=== PATIENT | female | born 1930 | race Caucasian/White ===

== ENCOUNTER 2018-08-22 09:43 | Inpatient (IN) ==
[2018-08-22] MEDS ORDERED: MORPHINE 4 MG/1 ML VIAL IV STA (09:51)
[2018-08-22] MEDS ORDERED: SODIUM CHLORIDE 0.9% 500 ML IV STA (09:51)
[2018-08-22] MEDS ORDERED: ONDANSETRON 4 MG/2 ML VIAL IV STA (09:51)
[2018-08-22 10:06] LABS: Basophils % 0.3 % (0.0-0.8); Eosinophils % 0.1 % (0.00-10.9); Hemoglobin 13.6 GM/DL (12.0-16.0); Immature Granulocytes % 0.6 %; Immature Granulocytes Absolute 0.09 #; Lymphocytes # 0.5 10*3/uL (1.4-4.0); Lymphocytes % 3.4 % (21.3-54.2); Mean Corpuscular HGB Conc 33.2 GM/DL (32-36); Mean Corpuscular Hemoglobin 34 PG (27-34); Mean Platelet Volume 9.6 FL (9.6-12.0); Monocytes # 0.8 10*3/uL (0.11-0.8); Monocytes % 5.2 % (1.7-12.7); Neutrophils # 14.2 10*3/uL (1.4-7.4); Neutrophils % 90.4 % (38.7-73.9); Platelet Count 220 T/CUMM (130-400); Red Blood Count 3.98 MC/CUMM (3.8-5.5); Red Cell Distribution Width 12.4 % (9.3-17.3); White Blood Count 15.7 T/CUMM (4-12)
[2018-08-22 10:50] LABS: Lymphocytes 6 % (20-55); Segmented Neutrophils 91 % (50-85); Total Cells Counted 100
[2018-08-22 10:51] LABS: Macrocytosis Slight; Platelet Estimate Normal
[2018-08-22 11:05] LABS: Albumin 3.2 G/DL (3.4-5.0); Bilirubin,Total 0.7 MG/DL (0.2-1.0); CKMB % 1.5 %; Calcium 7.9 MG/DL (8.5-10.1); Potassium 4.5 MMOL/L (3.5-5.1); Total Protein 6.5 G/DL (6.4-8.3); Troponin I 0.019 NG/ML (0.00-0.045)
[2018-08-22 11:49] LABS: Apearance,Urine CLEAR (Clear); Bacteria,Urine Occasional /HPF (Few); Bilirubin,Urine Negative (Negative); Blood, Urine Moderate mg/dL (Negative); Glucose,Urine (UA) Negative (Negative); Ketones,Urine Negative (Negative); Nitrite,Urine Positive (Negative); Protein,Urine Negative; RBC,Urine <1 /HPF (0-4); Urine Color Yellow (Yellow); Urine Specific Gravity 1.019 (1.001-1.035); Urine Urobilinogen < 2.0 EU/DL (0.2-1.0); WBC,Urine <1 /HPF (0-6)
[2018-08-22] MEDS ORDERED: cefTRIAXone 1,000 MG in SODIUM CHLORIDE 0.9% 100 ML IV STA (11:54)
[2018-08-22] MEDS ORDERED: DOCUSATE SODIUM 100 MG CAPSULE PO PRN (12:00)
[2018-08-22] MEDS ORDERED: ACETAMINOPHEN 325 MG TABLET PO PRN (12:00)
[2018-08-22] MEDS ORDERED: ENOXAPARIN 40 MG/0.4 ML SYRINGE SUBCUT SCH (12:00)
[2018-08-22] MEDS ORDERED: ONDANSETRON 4 MG/2 ML VIAL IV PRN (12:00)
[2018-08-22] MEDS ORDERED: MORPHINE 4 MG/1 ML VIAL IV PRN ×3 (12:00→13:10)
[2018-08-22] MEDS: SODIUM CHLORIDE 0.45% 1,000 ML IV SCH (16:05)
[2018-08-23] MEDS: SODIUM CHLORIDE 0.45% 1,000 ML IV SCH ×3 (00:39→13:00)
[2018-08-23 05:29] LABS: Basophils # 0.1 10*3/uL (0.0-0.2); Basophils % 0.5 % (0.0-0.8); Eosinophils # 0.2 10*3/uL (0.0-0.87); Eosinophils % 1.7 % (0.00-10.9); Hematocrit 38.9 VOL% (35.7-47.0); Hemoglobin 12.3 GM/DL (12.0-16.0); Immature Granulocytes % 0.7 %; Immature Granulocytes Absolute 0.08 #; Lymphocytes # 0.9 10*3/uL (1.4-4.0); Lymphocytes % 7.6 % (21.3-54.2); Mean Corpuscular HGB Conc 31.6 GM/DL (32-36); Mean Corpuscular Hemoglobin 34 PG (27-34); Mean Platelet Volume 9.6 FL (9.6-12.0); Monocytes # 0.5 10*3/uL (0.11-0.8); Monocytes % 4.6 % (1.7-12.7); Neutrophils % 84.9 % (38.7-73.9); Platelet Count 175 T/CUMM (130-400); Red Blood Count 3.67 MC/CUMM (3.8-5.5); Red Cell Distribution Width 12.7 % (9.3-17.3); White Blood Count 11.8 T/CUMM (4-12)
[2018-08-23 05:56] LABS: Calcium 8.2 MG/DL (8.5-10.1); Osmolality,Calculated 276.7 MOS/KG (273-304); Potassium 3.9 MMOL/L (3.5-5.1)
[2018-08-23] MEDS ORDERED: EPINEPHrine 1 MG/ML VIAL ONE (07:42)
[2018-08-23] MEDS ORDERED: ROPIVACAINE 0.5% 30 ML VIAL ONE (07:42)
[2018-08-23] MEDS ORDERED: BUPIVACAINE SPINAL 0.75% 2 ML AMP SPINAL ONE (08:41)
[2018-08-23] MEDS ORDERED: ceFAZolin 1,000 MG in SYRINGE 1 EACH IV ONE (09:00)
[2018-08-23] MEDS ORDERED: BISACODYL 10 MG SUPP RECTAL PRN (09:29)
[2018-08-23] MEDS ORDERED: diphenhydrAMINE CAP 25 MG CAPSULE PO PRN (09:29)
[2018-08-23] MEDS ORDERED: LACTULOSE 20 GM/30 ML UDCUP PO PRN (09:29)
[2018-08-23] MEDS ORDERED: MAGNESIUM HYDROXIDE SUSP 30 ML UDCUP PO PRN (09:29)
[2018-08-23] MEDS ORDERED: TEMAZEPAM 7.5 MG CAPSULE PO PRN (09:29)
[2018-08-23] MEDS ORDERED: PROMETHAZINE 25 MG/1 ML VIAL IM PRN (09:29)
[2018-08-23] MEDS ORDERED: MORPHINE 4 MG/1 ML VIAL IV PRN ×2 (09:35→09:39)
[2018-08-23] MEDS ORDERED: ceFAZolin 1,000 MG VIAL ONE (10:00)
[2018-08-23] MEDS ORDERED: MIDAZOLAM 2 MG/2 ML VIAL ONE (13:37)
[2018-08-23] MEDS ORDERED: PROPOFOL 200 MG/20 ML VIAL IV ONE (13:37)
[2018-08-23] MEDS ORDERED: fentaNYL 100 MCG/2 ML VIAL ONE (13:38)
[2018-08-23] MEDS ORDERED: ONDANSETRON 4 MG/2 ML VIAL ONE (13:38)
[2018-08-23] MEDS ORDERED: KETAMINE 500 MG/10 ML VIAL ONE (13:38)
[2018-08-23] MEDS ORDERED: PHENYLEPHRINE 10 MG/1 ML VIAL IV ONE (13:38)
[2018-08-23] MEDS: LACTATED RINGERS 1,000 ML IV SCH (16:01)
[2018-08-23] MEDS: cefTRIAXone 1,000 MG in SYRINGE 1 EACH IV SCH (16:11)
[2018-08-23] MEDS: PANTOPRAZOLE 40 MG TABLET PO SCH (16:12)
[2018-08-23] MEDS: ceFAZolin 1,000 MG in SYRINGE 1 EACH IV SCH (18:20)
[2018-08-23] MEDS: FONDAPARINUX 2.5 MG/0.5 ML SYRINGE SUBCUT SCH (21:09)
[2018-08-24] MEDS: SODIUM CHLORIDE 0.45% 1,000 ML IV SCH ×3 (00:46→08:49)
[2018-08-24] MEDS: ceFAZolin 1,000 MG in SYRINGE 1 EACH IV SCH (03:16)
[2018-08-24] MEDS ORDERED: ceFAZolin 1,000 MG in SYRINGE 1 EACH IV SCH (03:30)
[2018-08-24 05:34] LABS: Basophils # 0.1 10*3/uL (0.0-0.2); Basophils % 0.5 % (0.0-0.8); Eosinophils # 0.3 10*3/uL (0.0-0.87); Eosinophils % 2.9 % (0.00-10.9); Hematocrit 35.1 VOL% (35.7-47.0); Hemoglobin 11.6 GM/DL (12.0-16.0); Immature Granulocytes % 0.7 %; Immature Granulocytes Absolute 0.07 #; Lymphocytes # 0.8 10*3/uL (1.4-4.0); Lymphocytes % 7.7 % (21.3-54.2); Mean Corpuscular Hemoglobin 34 PG (27-34); Mean Corpuscular Volume 103.8 FL (87-102); Mean Platelet Volume 10.1 FL (9.6-12.0); Monocytes # 0.6 10*3/uL (0.11-0.8); Monocytes % 5.7 % (1.7-12.7); Neutrophils # 8.8 10*3/uL (1.4-7.4); Neutrophils % 82.5 % (38.7-73.9); Platelet Count 135 T/CUMM (130-400); Red Blood Count 3.38 MC/CUMM (3.8-5.5); Red Cell Distribution Width 12.5 % (9.3-17.3); White Blood Count 10.7 T/CUMM (4-12)
[2018-08-24 05:51] LABS: Calcium 7.9 MG/DL (8.5-10.1); Osmolality,Calculated 274.8 MOS/KG (273-304); Potassium 3.8 MMOL/L (3.5-5.1)
[2018-08-24] MEDS: LACTATED RINGERS 1,000 ML IV SCH ×2 (06:11→16:02)
[2018-08-24] MEDS: PANTOPRAZOLE 40 MG TABLET PO SCH (08:49)
[2018-08-24] MEDS: cefTRIAXone 1,000 MG in SYRINGE 1 EACH IV SCH (08:49)
[2018-08-24] MEDS: FOLIC ACID 1 MG TABLET PO SCH ×2 (10:26→20:36)
[2018-08-24] MEDS: cephALEXin 250 MG CAPSULE PO SCH ×2 (17:54→20:36)
[2018-08-24] MEDS: FONDAPARINUX 2.5 MG/0.5 ML SYRINGE SUBCUT SCH (20:36)
[2018-08-25 05:29] LABS: Basophils % 0.2 % (0.0-0.8); Eosinophils # 0.2 10*3/uL (0.0-0.87); Eosinophils % 1.9 % (0.00-10.9); Hematocrit 32.3 VOL% (35.7-47.0); Hemoglobin 10.6 GM/DL (12.0-16.0); Immature Granulocytes % 0.7 %; Immature Granulocytes Absolute 0.09 #; Lymphocytes % 7.8 % (21.3-54.2); Mean Corpuscular HGB Conc 32.8 GM/DL (32-36); Mean Corpuscular Hemoglobin 34 PG (27-34); Mean Corpuscular Volume 102.5 FL (87-102); Mean Platelet Volume 10.4 FL (9.6-12.0); Monocytes # 0.9 10*3/uL (0.11-0.8); Monocytes % 6.9 % (1.7-12.7); Neutrophils # 10.1 10*3/uL (1.4-7.4); Neutrophils % 82.5 % (38.7-73.9); Platelet Count 131 T/CUMM (130-400); Red Blood Count 3.15 MC/CUMM (3.8-5.5); Red Cell Distribution Width 12.1 % (9.3-17.3); White Blood Count 12.2 T/CUMM (4-12)
[2018-08-25] MEDS: FOLIC ACID 1 MG TABLET PO SCH ×2 (09:30→20:19)
[2018-08-25] MEDS: PANTOPRAZOLE 40 MG TABLET PO SCH (09:30)
[2018-08-25] MEDS: cephALEXin 250 MG CAPSULE PO SCH ×4 (09:30→20:19)
[2018-08-25] MEDS: LACTATED RINGERS 1,000 ML IV SCH ×2 (12:35→12:36)
[2018-08-25] MEDS: FONDAPARINUX 2.5 MG/0.5 ML SYRINGE SUBCUT SCH (20:19)
[2018-08-26 06:00] LABS: Basophils % 0.3 % (0.0-0.8); Eosinophils # 0.2 10*3/uL (0.0-0.87); Eosinophils % 1.5 % (0.00-10.9); Hematocrit 32.2 VOL% (35.7-47.0); Hemoglobin 10.7 GM/DL (12.0-16.0); Immature Granulocytes % 0.7 %; Immature Granulocytes Absolute 0.09 #; Lymphocytes % 8.5 % (21.3-54.2); Mean Corpuscular HGB Conc 33.2 GM/DL (32-36); Mean Corpuscular Hemoglobin 33 PG (27-34); Monocytes # 1.2 10*3/uL (0.11-0.8); Monocytes % 9.5 % (1.7-12.7); Neutrophils # 9.7 10*3/uL (1.4-7.4); Neutrophils % 79.5 % (38.7-73.9); Platelet Count 195 T/CUMM (130-400); Red Blood Count 3.22 MC/CUMM (3.8-5.5); White Blood Count 12.3 T/CUMM (4-12)
[2018-08-26 06:39] LABS: Calcium 8.6 MG/DL (8.5-10.1); Osmolality,Calculated 273.1 MOS/KG (273-304); Potassium 3.5 MMOL/L (3.5-5.1)
[2018-08-26] MEDS: LACTATED RINGERS 1,000 ML IV SCH ×2 (08:46→10:23)
[2018-08-26] MEDS: PANTOPRAZOLE 40 MG TABLET PO SCH (10:23)
[2018-08-26] MEDS: FOLIC ACID 1 MG TABLET PO SCH (10:23)
[2018-08-26] MEDS: cephALEXin 250 MG CAPSULE PO SCH (10:23)
[2018-08-26 16:12] VITALS: BP 103/73
== END 2018-08-26 12:15 | DRG 470 ==
LOC: EDBD → EDUNIT# → N.ED 09:43 → N.EDINP 12:00 → SUATTDRO 12:00 → N.3E 13:10
PROVIDERS: ADMIT Internal Medicine; ATTEND Family Medicine

== ENCOUNTER 2018-08-26 13:42 | Inpatient (IN) ==
[2018-08-26] MEDS ORDERED: PANTOPRAZOLE 40 MG VIAL IV STA (14:05)
[2018-08-26] MEDS ORDERED: ONDANSETRON 4 MG/2 ML VIAL IV STA (14:05)
[2018-08-26] MEDS ORDERED: DILTIAZEM 50 MG/10 ML VIAL IV STA (14:05)
[2018-08-26] MEDS ORDERED: SODIUM CHLORIDE 0.9% 1,000 ML IV STA (14:05)
[2018-08-26] MEDS ORDERED: DILTIAZEM 25 MG/5 ML VIAL IV ONE (14:37)
[2018-08-26] MEDS ORDERED: DOPamine 800 MG/250 ML PREMIX IV ONE (14:39)
[2018-08-26] MEDS ORDERED: LEVOFLOXACIN INJ 750 MG in PREMIX 1 EACH IV STA (14:42)
[2018-08-26 14:44] LABS: Basophils # 0.1 10*3/uL (0.0-0.2); Basophils % 0.4 % (0.0-0.8); Eosinophils # 0.2 10*3/uL (0.0-0.87); Eosinophils % 1.3 % (0.00-10.9); Hematocrit 30.4 VOL% (35.7-47.0); Hemoglobin 10.1 GM/DL (12.0-16.0); Immature Granulocytes % 0.9 %; Immature Granulocytes Absolute 0.12 #; Lymphocytes # 0.9 10*3/uL (1.4-4.0); Lymphocytes % 6.8 % (21.3-54.2); Mean Corpuscular HGB Conc 33.2 GM/DL (32-36); Mean Corpuscular Hemoglobin 34 PG (27-34); Mean Corpuscular Volume 103.1 FL (87-102); Mean Platelet Volume 10.5 FL (9.6-12.0); Monocytes % 7.9 % (1.7-12.7); NRBC # 0.02 10*3/uL; Neutrophils # 10.7 10*3/uL (1.4-7.4); Neutrophils % 82.7 % (38.7-73.9); Platelet Count 194 T/CUMM (130-400); Red Blood Count 2.95 MC/CUMM (3.8-5.5); Red Cell Distribution Width 12.2 % (9.3-17.3)
[2018-08-26] MEDS ORDERED: DIGOXIN 0.5 MG/2 ML AMP IV STA (14:49)
[2018-08-26] MEDS ORDERED: DOPamine 800 MG/250 ML PREMIX IV PRN (15:07)
[2018-08-26] MEDS ORDERED: ADENOSINE 6 MG/2 ML VIAL ONE (15:11)
[2018-08-26 15:18] LABS: Alanine Aminotransferase 39 U/L (13-56); Albumin 2.3 G/DL (3.4-5.0); Alkaline Phosphatase 65 U/L (45-117); Amylase 40 U/L (25-115); Aspartate Amino Transferase 75 U/L (0-37); Blood Urea Nitrogen 19 MG/DL (7-18); Calcium 7.4 MG/DL (8.5-10.1); Glucose 232 MG/DL (74-106); Osmolality,Calculated 278.1 MOS/KG (273-304); Potassium 3.1 MMOL/L (3.5-5.1); Sodium 135 MMOL/L (136-145); Total Protein 5.8 G/DL (6.4-8.3)
[2018-08-26] MEDS ORDERED: ADENOSINE 6 MG/2 ML VIAL IV STA (15:20)
[2018-08-26 15:23] LABS: Troponin I 0.053 NG/ML (0.00-0.045)
[2018-08-26 15:34] LABS: Apearance,Urine CLOUDY (Clear); Bilirubin,Urine Negative (Negative); Blood, Urine Small mg/dL (Negative); Glucose,Urine (UA) 50 mg/dL (Negative); Hyaline Casts,Urine 27 /LPF (0-3); Ketones,Urine Negative (Negative); Mucus,Urine Occasional /LPF (Occasional); Nitrite,Urine Negative (Negative); Protein,Urine 100 MG/DL; RBC,Urine 11 /HPF (0-4); Urine Color Amber (Yellow); Urine Specific Gravity 1.016 (1.001-1.035); Urine Urobilinogen < 2.0 EU/DL (0.2-1.0); WBC,Urine 11 /HPF (0-6)
[2018-08-26 15:49] LABS: INR 1.1; Partial Thromboplastin Time 26.5 SECS (0-40)
[2018-08-26] MEDS ORDERED: ALBUTEROL 2.5 MG/3 ML NEB RESP TX PRN (16:48)
[2018-08-26] MEDS ORDERED: ACETAMINOPHEN 325 MG TABLET PO PRN (16:48)
[2018-08-26] MEDS ORDERED: ONDANSETRON 4 MG/2 ML VIAL IV PRN (16:48)
[2018-08-26] MEDS ORDERED: GLUCAGON 1 MG VIAL IM PRN (16:54)
[2018-08-26] MEDS ORDERED: DEXTROSE 50% 25 GM/50 ML VIAL IV PRN (16:54)
[2018-08-26] MEDS ORDERED: POTASSIUM CHLORIDE 20 MEQ TABLET PO ONE (17:28)
[2018-08-26] MEDS: FUROSEMIDE 40 MG/4 ML VIAL IV SCH (18:54)
[2018-08-26] MEDS: METOPROLOL TARTRATE 25 MG TABLET PO SCH ×2 (18:54→21:07)
[2018-08-26 20:05] LABS: CKMB % 1.4 %
[2018-08-26 20:14] LABS: Lactic Acid 3.3 MMOL/L (0.4-2.0)
[2018-08-26] MEDS: FOLIC ACID 1 MG TABLET PO SCH (21:06)
[2018-08-26] MEDS: ENOXAPARIN 40 MG/0.4 ML SYRINGE SUBCUT SCH (21:06)
[2018-08-26] MEDS: INSULIN LISPRO 100 UNIT/ML SUBCUT SCH (21:06)
[2018-08-26] MEDS: CIPROFLOXACIN 500 MG TABLET PO SCH (21:06)
[2018-08-26] MEDS: FAMOTIDINE 20 MG TABLET PO SCH (21:06)
[2018-08-26 22:17] LABS: CKMB % 1.6 %
[2018-08-26 22:21] LABS: Troponin I 0.355 NG/ML (0.00-0.045)
[2018-08-27 04:36] LABS: Troponin I 0.293 NG/ML (0.00-0.045)
[2018-08-27 07:15] LABS: Bilirubin,Total 1.2 MG/DL (0.2-1.0); Calcium 7.6 MG/DL (8.5-10.1); Osmolality,Calculated 277.7 MOS/KG (273-304); Potassium 3.7 MMOL/L (3.5-5.1); Total Protein 5.1 G/DL (6.4-8.3)
[2018-08-27 07:16] LABS: Troponin I 0.204 NG/ML (0.00-0.045)
[2018-08-27] MEDS ORDERED: SIMETHICONE CHEW 125 MG TABLET PO PRN (08:30)
[2018-08-27] MEDS: INSULIN LISPRO 100 UNIT/ML SUBCUT SCH ×4 (08:37→20:10)
[2018-08-27] MEDS: METOCLOPRAMIDE 10 MG/2 ML VIAL IV SCH ×4 (08:57→23:56)
[2018-08-27] MEDS: ALBUMIN 25% 25 GM in PREMIX 1 EACH IV SCH ×2 (08:58→17:01)
[2018-08-27] MEDS: CIPROFLOXACIN 500 MG TABLET PO SCH ×2 (08:59→20:05)
[2018-08-27] MEDS: FOLIC ACID 1 MG TABLET PO SCH ×2 (08:59→20:05)
[2018-08-27] MEDS: FAMOTIDINE 20 MG TABLET PO SCH ×2 (08:59→20:05)
[2018-08-27] MEDS: BISACODYL 5 MG TABLET PO SCH (08:59)
[2018-08-27] MEDS: METOPROLOL TARTRATE 25 MG TABLET PO SCH ×2 (08:59→20:05)
[2018-08-27] MEDS ORDERED: PANTOPRAZOLE 40 MG TABLET PO SCH (09:00)
[2018-08-27] MEDS ORDERED: FUROSEMIDE 40 MG/4 ML VIAL IV SCH (09:00)
[2018-08-27] MEDS: FUROSEMIDE 40 MG/4 ML VIAL IV SCH (09:18)
[2018-08-27] MEDS: ENOXAPARIN 40 MG/0.4 ML SYRINGE SUBCUT SCH (20:05)
[2018-08-28] MEDS: ALBUMIN 25% 25 GM in PREMIX 1 EACH IV SCH
[2018-08-28 04:10] LABS: Basophils # 0.1 10*3/uL (0.0-0.2); Basophils % 0.5 % (0.0-0.8); Eosinophils # 0.8 10*3/uL (0.0-0.87); Eosinophils % 8.1 % (0.00-10.9); Hemoglobin 8.9 GM/DL (12.0-16.0); Immature Granulocytes % 1.5 %; Immature Granulocytes Absolute 0.14 #; Lymphocytes # 1.6 10*3/uL (1.4-4.0); Lymphocytes % 17.3 % (21.3-54.2); Mean Corpuscular HGB Conc 34.2 GM/DL (32-36); Mean Corpuscular Hemoglobin 35 PG (27-34); Mean Corpuscular Volume 102.8 FL (87-102); Mean Platelet Volume 10.3 FL (9.6-12.0); Monocytes % 10.6 % (1.7-12.7); NRBC # 0.03 10*3/uL; Neutrophils # 5.8 10*3/uL (1.4-7.4); Platelet Count 190 T/CUMM (130-400); Red Blood Count 2.53 MC/CUMM (3.8-5.5); Red Cell Distribution Width 12.3 % (9.3-17.3); White Blood Count 9.4 T/CUMM (4-12)
[2018-08-28 04:25] LABS: Albumin 3.2 G/DL (3.4-5.0); Bilirubin,Total 2.3 MG/DL (0.2-1.0); Calcium 7.8 MG/DL (8.5-10.1); Osmolality,Calculated 279.4 MOS/KG (273-304); Potassium 3.2 MMOL/L (3.5-5.1); Total Protein 5.9 G/DL (6.4-8.3)
[2018-08-28] MEDS: METOCLOPRAMIDE 10 MG/2 ML VIAL IV SCH ×3 (05:15→17:29)
[2018-08-28] MEDS: INSULIN LISPRO 100 UNIT/ML SUBCUT SCH ×4 (08:10→21:10)
[2018-08-28] MEDS: POTASSIUM CHLORIDE 20 MEQ TABLET PO PRN ×2 (08:10→10:39)
[2018-08-28] MEDS: POTASSIUM CHLORIDE 20 MEQ TABLET PO SCH (10:38)
[2018-08-28] MEDS: BISACODYL 5 MG TABLET PO SCH (10:38)
[2018-08-28] MEDS: CIPROFLOXACIN 500 MG TABLET PO SCH ×2 (10:39→21:09)
[2018-08-28] MEDS: FOLIC ACID 1 MG TABLET PO SCH ×2 (10:39→21:08)
[2018-08-28] MEDS: FAMOTIDINE 20 MG TABLET PO SCH ×2 (10:39→21:08)
[2018-08-28] MEDS: FUROSEMIDE 40 MG TABLET PO SCH (10:39)
[2018-08-28] MEDS: METOPROLOL TARTRATE 25 MG TABLET PO SCH ×2 (10:39→21:08)
[2018-08-28] MEDS: SIMETHICONE CHEW 125 MG TABLET PO SCH ×2 (10:41→21:10)
[2018-08-28] MEDS: traZODone 50 MG TABLET PO SCH (21:09)
[2018-08-28] MEDS: ENOXAPARIN 40 MG/0.4 ML SYRINGE SUBCUT SCH (21:10)
[2018-08-29 06:14] LABS: Bilirubin,Total 2.1 MG/DL (0.2-1.0); Osmolality,Calculated 278.4 MOS/KG (273-304); Potassium 3.9 MMOL/L (3.5-5.1); Total Protein 5.7 G/DL (6.4-8.3)
[2018-08-29] MEDS: SIMETHICONE CHEW 125 MG TABLET PO SCH ×3 (09:50→21:20)
[2018-08-29] MEDS: POTASSIUM CHLORIDE 20 MEQ TABLET PO SCH (09:50)
[2018-08-29] MEDS: FUROSEMIDE 40 MG TABLET PO SCH (09:50)
[2018-08-29] MEDS: METOPROLOL TARTRATE 25 MG TABLET PO SCH ×2 (09:51→21:16)
[2018-08-29] MEDS: FOLIC ACID 1 MG TABLET PO SCH ×2 (09:51→21:17)
[2018-08-29] MEDS: METOCLOPRAMIDE 10 MG/2 ML VIAL IV SCH ×4 (09:51→18:42)
[2018-08-29] MEDS: CIPROFLOXACIN 500 MG TABLET PO SCH ×2 (09:51→21:16)
[2018-08-29] MEDS: INSULIN LISPRO 100 UNIT/ML SUBCUT SCH ×4 (09:51→21:18)
[2018-08-29] MEDS: FAMOTIDINE 20 MG TABLET PO SCH ×2 (09:51→21:18)
[2018-08-29] MEDS: BISACODYL 5 MG TABLET PO SCH (09:53)
[2018-08-29] MEDS: traZODone 50 MG TABLET PO SCH (21:17)
[2018-08-29] MEDS: ENOXAPARIN 40 MG/0.4 ML SYRINGE SUBCUT SCH (21:18)
[2018-08-30] MEDS: METOCLOPRAMIDE 10 MG/2 ML VIAL IV SCH ×4 (00:45→20:05)
[2018-08-30] MEDS: POTASSIUM CHLORIDE 20 MEQ TABLET PO SCH (11:06)
[2018-08-30] MEDS: CIPROFLOXACIN 500 MG TABLET PO SCH ×2 (11:06→21:35)
[2018-08-30] MEDS: FOLIC ACID 1 MG TABLET PO SCH ×2 (11:07→21:35)
[2018-08-30] MEDS: FUROSEMIDE 40 MG TABLET PO SCH (11:07)
[2018-08-30] MEDS: SIMETHICONE CHEW 125 MG TABLET PO SCH ×3 (11:12→21:35)
[2018-08-30] MEDS: FAMOTIDINE 20 MG TABLET PO SCH ×2 (11:13→21:35)
[2018-08-30] MEDS: METOPROLOL TARTRATE 25 MG TABLET PO SCH ×2 (11:30→21:35)
[2018-08-30] MEDS: INSULIN LISPRO 100 UNIT/ML SUBCUT SCH ×4 (11:30→21:35)
[2018-08-30] MEDS: BISACODYL 5 MG TABLET PO SCH (11:30)
[2018-08-30] MEDS: traZODone 50 MG TABLET PO SCH (21:34)
[2018-08-30] MEDS: ENOXAPARIN 40 MG/0.4 ML SYRINGE SUBCUT SCH (21:34)
[2018-08-31] MEDS: METOCLOPRAMIDE 10 MG/2 ML VIAL IV SCH ×3 (00:51→12:29)
[2018-08-31 07:37] VITALS: BP 131/68
[2018-08-31] MEDS: BISACODYL 5 MG TABLET PO SCH (09:18)
[2018-08-31] MEDS: FAMOTIDINE 20 MG TABLET PO SCH (09:18)
[2018-08-31] MEDS: FUROSEMIDE 40 MG TABLET PO SCH (09:18)
[2018-08-31] MEDS: SIMETHICONE CHEW 125 MG TABLET PO SCH (09:19)
[2018-08-31] MEDS: FOLIC ACID 1 MG TABLET PO SCH (09:19)
[2018-08-31] MEDS: CIPROFLOXACIN 500 MG TABLET PO SCH (09:19)
[2018-08-31] MEDS: METOPROLOL TARTRATE 25 MG TABLET PO SCH (09:19)
[2018-08-31] MEDS: POTASSIUM CHLORIDE 20 MEQ TABLET PO SCH (09:19)
[2018-08-31] MEDS: INSULIN LISPRO 100 UNIT/ML SUBCUT SCH ×2 (09:19→12:29)
== END 2018-08-31 12:29 | DRG 308 ==
LOC: EDBD → EDUNIT# → N.ED 13:42 → N.EDINP 16:48 → N.ICU 18:04 → N.5E 08-28 12:10
PROVIDERS: ADMIT Family Medicine; ATTEND Family Medicine